=== PATIENT | male | born 1960 | race Hispanic/Latino ===

== ENCOUNTER 2022-11-27 12:56 | Observation (INO) | payer BC ==
[2022-11-25 11:41] VITALS: BP 162/82
[2022-11-25 11:45] LABS: BASOPHILS % (AUTO) 0.6 % (0.0-5.0); EOSINOPHILS % (AUTO) 1.4 % (0.0-8.0); HEMATOCRIT 45.3 % (42-54); LYMPHOCYTES % (AUTO) 11.8 % (21.0-51.0); MEAN CORPUSCULAR HGB CONC 32.5 g/dL (32.0-36.0); MEAN CORPUSCULAR VOLUME 98.7 fL (79-99); MONOCYTES % (AUTO) 7.6 % (3.0-13.0); NEUTROPHILS % (AUTO) 77.7 % (40.0-77.0); PLATELET COUNT (AUTO) 285 K/uL (130-400); RED BLOOD CELL COUNT(AUTO) 4.59 MIL/uL (4.50-6.20); RED CELL DISTRIBUTION WIDTH 13.1 % (11.0-15.5); WHITE BLOOD COUNT (AUTO) 12.1 K/uL (4.8-10.8)
[2022-11-25 12:11] LABS: CREATININE 1.1 mg/dL (0.5-1.5); POTASSIUM 3.7 mmol/L (3.5-5.1)
[2022-11-27] VITALS (24 sets, daily range): BP systolic 106–150; BP diastolic 61–85
[~2022-11-27] VITALS: Ht 188 cm; Wt 134.8 kg
[~2022-11-27 12:56] MED LIST: NAPR220C15 PO
[2022-11-27] MEDS ORDERED: LACTATED RINGERS 1000ML 1,000 ML IV ONE (13:03)
[2022-11-27] MEDS ORDERED: CEFAZOLIN SODIUM 2 GM VIAL ONE (13:03)
[2022-11-27] MEDS ORDERED: CEFAZOLIN SODIUM 1 GM VIAL ONE (13:03)
[2022-11-27] MEDS ORDERED: [UNRECOGNIZED DRUG - OTHER] PO (13:19)
[2022-11-27] MEDS ORDERED: CHOL200052 PO (13:19)
[2022-11-27] MEDS ORDERED: LIDOCAINE PF 100MG/5ML (2%) SYRINGE 5ML ONE (14:38)
[2022-11-27] MEDS ORDERED: ROCURONIUM 10MG/1ML SYR 10 MG/ML ML ONE ×2 (14:38→15:30)
[2022-11-27] MEDS ORDERED: PROPOFOL 10 MG/ML 20ML VIAL IV ONE (14:38)
[2022-11-27] MEDS ORDERED: MIDAZOLAM HCL 1 MG/ML 2ML VIAL ONE (14:38)
[2022-11-27] MEDS ORDERED: SUCCINYLCHOLINE 200MG/10ML SYR ONE (14:38)
[2022-11-27] MEDS ORDERED: BUPIVACAINE/PF 0.25% 30ML VIAL IJ ONE (14:39)
[2022-11-27] MEDS ORDERED: FENTANYL CITRATE PF 50 MCG/1 ML 2ML VIAL ONE (14:39)
[2022-11-27] MEDS ORDERED: CEFAZOLIN SODIUM 3 GM VIAL IVPB ONE (14:56)
[2022-11-27] MEDS ORDERED: TRANEXAMIC ACID 1000MG/10ML ONE (15:35)
[2022-11-27] MEDS ORDERED: HYDROMORPHONE 1 MG INJ ONE (15:46)
[2022-11-27] MEDS ORDERED: ROPIVACAINE 0.5% 5MG/ML 30ML IJ ONE (17:17)
[2022-11-27] MEDS ORDERED: CEFAZOLIN SODIUM 2 GM VIAL IVPB SCH (19:00)
[2022-11-27] MEDS ORDERED: ONDANSETRON 4MG INJ IVP PRN (19:00)
[2022-11-27] MEDS ORDERED: MORPHINE 2 MG SYG IVP PRN ×2 (19:00→20:30)
[2022-11-27] MEDS: CEFAZOLIN SODIUM 3 GM in DEXTROSE 5%-WATER 100 ML IVPB SCH (20:56)
[2022-11-27] MEDS: HYDROCODONE/ACETAMINOPHEN 5/325 MG TAB PO PRN (21:10)
[2022-11-27] MEDS: MORPHINE 4 MG SYG IVP PRN (23:14)
[2022-11-28] VITALS: BP 118/67
[2022-11-28 01:00] VITALS: BP 135/66
[2022-11-28] MEDS: MORPHINE 4 MG SYG IVP PRN (03:03)
[2022-11-28] MEDS: CEFAZOLIN SODIUM 3 GM in DEXTROSE 5%-WATER 100 ML IVPB SCH ×2 (03:05→11:37)
[2022-11-28 04:32] LABS: BASOPHILS % (AUTO) 0.5 % (0.0-5.0); EOSINOPHILS % (AUTO) 0.6 % (0.0-8.0); LYMPHOCYTES % (AUTO) 6.8 % (21.0-51.0); MEAN CORPUSCULAR HEMOGLOBIN 32.2 pg (27.0-33.0); MEAN CORPUSCULAR HGB CONC 32.6 g/dL (32.0-36.0); MEAN CORPUSCULAR VOLUME 98.7 fL (79-99); MONOCYTES % (AUTO) 8.8 % (3.0-13.0); NEUTROPHILS % (AUTO) 82.2 % (40.0-77.0); PLATELET COUNT (AUTO) 246 K/uL (130-400); RED BLOOD CELL COUNT(AUTO) 3.85 MIL/uL (4.50-6.20); RED CELL DISTRIBUTION WIDTH 13.3 % (11.0-15.5)
[2022-11-28 04:40] LABS: CREATININE 1.1 mg/dL (0.5-1.5); POTASSIUM 3.8 mmol/L (3.5-5.1)
[2022-11-28 05:00] VITALS: BP 110/65
[2022-11-28] MEDS: HYDROCODONE/ACETAMINOPHEN 5/325 MG TAB PO PRN ×2 (05:22→11:32)
[2022-11-28] MEDS: KETOROLAC 30MG VIAL (30MG/ML) IVP PRN ×2 (08:14→14:39)
[2022-11-28 09:00] VITALS: BP 120/69
[2022-11-28] MEDS ORDERED: ASPIRIN 325MG TAB PO SCH (09:00)
[2022-11-28] MEDS ORDERED: ACETAMINOPHEN 325 MG TAB PO PRN (09:00)
[2022-11-28] MEDS ORDERED: NAPROXEN SODIUM 220 MG PO SCH (09:00)
[2022-11-28] MEDS ORDERED: CHOLECALCIFEROL 50 MCG PO SCH (09:00)
[2022-11-28] MEDS ORDERED: [UNRECOGNIZED DRUG - OTHER] PO SCH (09:00)
[2022-11-28] MEDS ORDERED: MAGNESIUM 2GM PREMIX 50ML 50 ML IV PRN (11:00)
[2022-11-28] MEDS ORDERED: POTASSIUM CHLORIDE 20MEQ/100ML 100 ML IV PRN (11:00)
[2022-11-28] MEDS ORDERED: PANTOPRAZOLE 40 MG/VIAL IVP SCH (11:00)
[2022-11-28] MEDS ORDERED: KCL 20 MEQ ERTAB PO PRN (11:00)
[2022-11-28] MEDS ORDERED: POTASSIUM CHLORIDE 10% ELIXIR 20 MEQ/15 ML UDCUP PO PRN (11:00)
[2022-11-28 11:10] LABS: HEMOGLOBIN A1C 6.3 % (4.0-6.0)
[2022-11-28 11:22] VITALS: BP 104/60
[2022-11-28] MEDS ORDERED: CEFAZOLIN SODIUM 2 GM VIAL ONE (11:24)
[2022-11-28] MEDS: INSULIN HUMULIN R 100 UNIT/ML 3ML SQ SCH ×2 (11:38→15:27)
[2022-11-28] MEDS ORDERED: COMPOUND IV REFRIGERATED 1 EACH IVSOLN MISC PRN (12:00)
[2022-11-28 16:24] VITALS: BP 120/61
== END 2022-11-28 16:50 | disposition home or self-care (01) ==
LOC: DAH 12:56 → 4DH 12:57 → INTOOBSV 12:57 → DAH 14:52
PROVIDERS: ADMIT Orthopaedic Surgery; ATTEND Orthopaedic Surgery
DX: M17.11 Unilateral primary osteoarthritis, right knee (principal); Z20.822 Contact with and (suspected) exposure to COVID-19; F02.80 Dementia in other diseases classified elsewhere, unspecified severity, without behavioral disturbance, psychotic disturbance, mood disturbance, and anxiety; I10 Essential (primary) hypertension; D72.829 Elevated white blood cell count, unspecified; N40.0 Benign prostatic hyperplasia without lower urinary tract symptoms; E66.9 Obesity, unspecified; Z79.82 Long term (current) use of aspirin; Z68.38 Body mass index [BMI] 38.0-38.9, adult; Z79.899 Other long term (current) drug therapy; Z98.890 Other specified postprocedural states
CPT/HCPCS: 27447; C1776; 36415; 64447; 71045; 73562; 80048; 82948; 83036; 83735; 85025; 87426; 87641; 93005; 96365; 96366; 96372; 96375; 96376; 97039; C9113; G0378; J0330; J0690; J1170; J1815; J1885; J2001; J2250; J2270; J2704; J2795; J3010; J3475; J3490; J7030; J7060; J7120